=== PATIENT | male | born 1965 | race Two or more races ===

== ENCOUNTER 2021-04-23 23:20 | Inpatient (IN) | payer MEDICAID ==
[~2021-04-23] VITALS: Ht 167.6 cm; Wt 88.9 kg
--- NOTE | 2021-04-23 23:56 | NUR ---
PT BIB SON FOR C/O ELAVATED BS OF 500+ AT HOME. FSBS ON TRIAGE: 389. ALSO W/ C/O CRACKED TONGUE, AND PENILE DISCHARGE. PT ALERT AND ORIENTED X3 AMBULATORY WITH NON LABORED BREATHING.
--- NOTE | 2021-04-24 | NUR ---
PATIENT PLACED ON CARDIAC PADS AND MONITOR WITH CLOSE OBSERVATION.
--- NOTE | 2021-04-24 00:25 | NUR ---
FABIANO LUCERO [phone]
[2021-04-24] MEDS ORDERED: IV NS 0.9% 1,000 ML BAG IV ONE (00:30)
[2021-04-24] MEDS ORDERED: ATROPINE SULFATE INJ 1 MG/ML VIAL ONE (00:40)
[2021-04-24] MEDS ORDERED: ATROPINE SULFATE 1 MG/10 ML DISP.SYRIN IV ONE (01:00)
[2021-04-24 01:02] LABS: BASOPHILS # (AUTO) 0.1 K/uL (0.0-0.2); BASOPHILS % (AUTO) 1.1 % (0.0-2.0); EOSINOPHILS % (AUTO) 6.3 % (0.0-6.0); HEMATOCRIT 37 % (39-51); HEMOGLOBIN 11.9 g/dL (13.5-17.5); LYMPHOCYTES % (AUTO) 32.9 % (20.0-44.0); MEAN CORPUSCULAR HGB CONC 32 g/dl (31.0-36.0); MEAN CORPUSCULAR VOLUME 66 fL (80-96); MONOCYTES # (AUTO) 0.4 K/uL (0.1-1.30); MONOCYTES % (AUTO) 7.2 % (2.0-12.0); NEUTROPHILS # (AUTO) 3.2 K/uL (1.8-8.9); NEUTROPHILS % (AUTO) 52.5 % (43.0-81.0); PLATELET COUNT (AUTO) 206 K/uL (150-450); RED BLOOD CELL COUNT(AUTO) 5.61 MIL/uL (4.5-6.0); WHITE BLOOD COUNT (AUTO) 6.1 K/uL (4.3-11.0)
[2021-04-24 01:03] LABS: ALANINE AMINOTRANSFERASE 36 U/L (12-78); ALBUMIN 3.5 g/dL (3.4-5.0); ALKALINE PHOSPHATASE 140 U/L (46-116); ASPARTATE AMINOTRANSFERASE 17 U/L (15-37); BILIRUBIN,DIRECT 0.1 mg/dL (0.0-0.2); BILIRUBIN,TOTAL 0.4 mg/dL (0.2-1.0); CARBON DIOXIDE 26 mmol/L (21-32); CHLORIDE 99 mmol/L (98-107); CREATININE 1.1 mg/dL (0.6-1.3); SODIUM SERUM 134 mmol/L (136-145); TOTAL PROTEIN, SERUM 7.5 g/dL (6.4-8.2); UREA NITROGEN, BLOOD 21 mg/dL (7-18)
[2021-04-24 01:11] LABS: CALCIUM, SERUM 8.6 mg/dL (8.5-10.1)
[2021-04-24 01:15] LABS: GLUCOSE 452 mg/dL (74-106)
[2021-04-24] MEDS ORDERED: INSULIN REGULAR, HUMAN 100 UNIT/ML 10 ML VIAL ONE (01:22)
[2021-04-24] MEDS ORDERED: INSULIN REGULAR, HUMAN 100 UNIT/ML 10 ML VIAL IV ONE (01:30)
--- NOTE | 2021-04-24 01:40 | NUR ---
URINE COLLECTED AND SENT TO LAB.
[2021-04-24 01:50] LABS: BASOPHILS % (MANUAL) 0 % (0.0-2.0); EOSINOPHILS % (MANUAL) 5 % (0-4); NEUTROPHILS % (MANUAL) 61 (42-76)
[2021-04-24 01:51] LABS: LYMPHOCYTES % (MANUAL) 23 % (16-48); MONOCYTES % (MANUAL) 11 % (0-11.0)
[2021-04-24 01:58] LABS: BILIRUBIN,URINE Negative (NEGATIVE); COLOR,URINE YELLOW (YELLOW); LEUKOCYTE ESTERASE ,URINE Negative (NEGATIVE); NITRITE, URINE Negative (NEGATIVE); PH,URINE 5.5 (5.0-8.0); PROTEIN,URINE Negative (NEGATIVE); UGLUCOSE 500 MG/DL mg/dL (NEGATIVE); UROBILINOGEN,URINE 0.2 EU/dL (0.2)
--- NOTE | 2021-04-24 02:30 | NUR ---
CALLED ELEMENTARY SCHOOL DIRECTOR FOR MYCOSTATIN CREAM AVAILABILITY.
--- NOTE | 2021-04-24 02:58 | NUR ---
GLUCOSE [id number]
[2021-04-24] MEDS ORDERED: MAG HYDROX/AL HYDROX/SIMETH 30 ML UDC PO PRN (03:00)
[2021-04-24] MEDS ORDERED: Z GUARD REMEDY 2 OZ OINT TP PRN (03:00)
[2021-04-24] MEDS ORDERED: ACETAMINOPHEN 325 MG TABLET PO PRN (03:00)
[2021-04-24] MEDS ORDERED: ONDANSETRON HCL/PF 4 MG/2 ML VIAL IVP PRN (03:00)
[2021-04-24] MEDS ORDERED: ZOLPIDEM TARTRATE 5 MG TABLET PO PRN (03:00)
[2021-04-24] MEDS ORDERED: MAGNESIUM HYDROXIDE 30 ML UDC PO PRN (03:00)
[2021-04-24] MEDS ORDERED: INSULIN REGULAR, HUMAN 100 UNIT/ML 3 ML VIAL SQ PRN (03:00)
[2021-04-24] MEDS ORDERED: DEXTROSE 50%-WATER 50 ML DISP.SYRIN IV PRN (03:00)
[2021-04-24] MEDS ORDERED: IV NS 0.9% 1,000 ML IV ONE (03:00)
[2021-04-24] MEDS: NYSTATIN CREAM 15 GM TUBE TP SCH ×3 (03:52→16:03)
--- NOTE | 2021-04-24 03:53 | NUR ---
MEDICATION NOT AVAILABLE, AUTOMATIC DRILLING MACHINE OPERATOR AWARE.
[2021-04-24] MEDS ORDERED: METFORMIN (09:10)
--- NOTE | 2021-04-24 09:19 | NUR ---
GOT BED 311-2
--- NOTE | 2021-04-24 09:44 | NUR ---
report given to Yolande ACKERMAN for dayday.
--- NOTE | 2021-04-24 10:04 | NUR ---
wheeled patient viag urney accompanied by RN and emt in no distress. RN assigned to patient at bedside to assume care.
--- NOTE | 2021-04-24 10:05 | NUR ---
Patient came from ER via gurney, stable condition, no apparent distress noted, denies any pain or discomfort at this time. Admitting diagnosis: bradycardia and hyperglycemia. Skin assessment done. Patient was taught how to use call light, bed control and tv control, verbalized understanding and gratitude. Safety precautions in place, brakes locked, side rails up X2, all needs attended, will monitor closely for any changes.
--- NOTE | 2021-04-24 10:56 | NUR ---
TURBO ELECTRIC OPERATOR NOTES PT SEEN AND EXAMINED BY DR. JEAN, PLAN OF CARE DISCUSSED WITH PT, VERBALIZED UNDERSTANDING.
[2021-04-24] MEDS ORDERED: HYDROCODONE/APAP 5/325MG TABLET PO PRN (11:00)
[2021-04-24 11:49] LABS: IRON, SERUM 74 ug/dl (50-175); TOTAL IRON BINDING CAPACITY 296 ug/dl (250-450)
[2021-04-24 12:03] LABS: FERRITIN 73 ng/mL (8-388)
[2021-04-24] MEDS: MUPIROCIN OINT 2% 22 GM TUBE TP SCH ×2 (13:03→22:28)
[2021-04-24] MEDS: BLOOD SUGAR DIAGNOSTIC 1 EACH STRIP VI SCH ×3 (15:47→22:03)
[2021-04-24] MEDS: *INSULIN REGULAR(HUMULIN R)HUM 100 UNIT/ML VIAL SQ PRN ×2 (17:03→22:00)
--- NOTE | 2021-04-24 18:34 | NUR ---
RN CLOSING NOTES Patient seen in bed, no SOB, no respiratory distress, denies any pain or discomfort at this time. Insulin given per sliding scale, tolerating well, no s/s of hypo/hyperglycemia, no tremors noted, no dizziness. Skin warm to touch, no pallor or cyanosis noted. All due medications given, tolerating well. All needs attended, safety precautions maintained, brakes locked, side rails up X 2, call light left within reach, will endorse to next shift for continuity of care.
--- NOTE | 2021-04-24 19:44 | NUR ---
MS TELE OPENING NOTES: RECEIVED PATIENT AWAKE IN BED , AMBULATORY, UZBEK SPEAKING A/O X4 ON STABLE CONDITION, ON ROOM AIR, ON TELE MONITORING WITH READING OFJUNCTIONAL RHYTHM 45=50 IV LINE AT RAC#18 SL, NO COMPLAIN OF PAIN AND DISCOMFORT AT THIS TIME PATIENT KEPT CLEAN AND DRY, WILL CONTINUE TO MONITOR.
[2021-04-24 20:00] VITALS: BP 102/69
--- NOTE | 2021-04-24 22:00 | NUR ---
RN NOTES: PATIENT TELEMONITORING READING WAS SR/SB WITH 1 DEGREE AVB- A FIB AT 59 PATIENT WAS ASYMPTOMATIC, NO COMPLAIN OF PAIN AND DISCOMFORT, NOTIFY DR LOPEZ AND ORDERED TO MONITOR.
[2021-04-25] VITALS: BP 135/85
[2021-04-25 04:00] VITALS: BP 141/69
[2021-04-25 06:39] LABS: BASOPHILS # (AUTO) 0.1 K/uL (0.0-0.2); BASOPHILS % (AUTO) 1.4 % (0.0-2.0); EOSINOPHILS % (AUTO) 6.4 % (0.0-6.0); HEMATOCRIT 38 % (39-51); HEMOGLOBIN 13.2 g/dL (13.5-17.5); LYMPHOCYTES # (AUTO) 2.4 K/uL (0.8-4.8); LYMPHOCYTES % (AUTO) 33.4 % (20.0-44.0); MEAN CORPUSCULAR HGB CONC 35 g/dl (31.0-36.0); MEAN CORPUSCULAR VOLUME 65 fL (80-96); MONOCYTES # (AUTO) 0.4 K/uL (0.1-1.30); NEUTROPHILS # (AUTO) 3.8 K/uL (1.8-8.9); NEUTROPHILS % (AUTO) 52.8 % (43.0-81.0); PLATELET COUNT (AUTO) 266 K/uL (150-450); RED BLOOD CELL COUNT(AUTO) 5.85 MIL/uL (4.5-6.0); WHITE BLOOD COUNT (AUTO) 7.1 K/uL (4.3-11.0)
--- NOTE | 2021-04-25 06:59 | NUR ---
TELE CLOSING NOTES PATIENT SLEEP IN BED COMFORTABLY, BED IN LOW POSITION, CALL LIGHTS WITHIN REACH, NO COMPLAIN OF PAIN AND DISCOMFORT AT THIS TIME, A/OX4 AMBULATORY, KYRGYZ SPEAKING WITH IV LINE AT RAC# 18 SL.PATIENT KEPT CLEAN AND DRY, ALL NEEDS MET, ENDORSE TO INCOMING SHIFT.
[2021-04-25 07:01] LABS: CALCIUM, SERUM 8.3 mg/dL (8.5-10.1); CREATININE 1.3 mg/dL (0.6-1.3); MAGNESIUM 2.1 mg/dL (1.8-2.4); PHOSPHORUS 3.4 mg/dL (2.5-4.9); POTASSIUM 4.4 mmol/L (3.5-5.1)
[2021-04-25] MEDS: BLOOD SUGAR DIAGNOSTIC 1 EACH STRIP VI SCH ×2 (07:16→11:55)
[2021-04-25 08:00] VITALS: BP 123/73
--- NOTE | 2021-04-25 08:01 | NUR ---
TELE/RN OPENING NOTES RECEIVED PATIENT ON BED AWAKE AND NON VERBAL. PATIENT IS ON ROOM AIR SATURATION 99% PATIENT IN NO APPARENT RESPIRATORY DISTRESS NOTED. NO COMPLAINED OF PAIN NOTED AT THIS TIME. TELE MONITOR READING SINUS JEANNE 50 BPM JUNCTIONAL, 1ST DEGREE HEART CLOCK. WILL CONTINUE TO MONITOR.
[2021-04-25] MEDS: NYSTATIN CREAM 15 GM TUBE TP SCH (08:49)
[2021-04-25] MEDS ORDERED: GEMFIBROZIL 600 MG TABLET PO SCH (11:00)
[2021-04-25] MEDS: MUPIROCIN OINT 2% 22 GM TUBE TP SCH (11:11)
[2021-04-25] MEDS: *INSULIN REGULAR(HUMULIN R)HUM 100 UNIT/ML VIAL SQ PRN (11:54)
[2021-04-25] MEDS ORDERED: INSU1INS SQ (15:58)
[2021-04-25] MEDS ORDERED: INSU100I30 SQ (15:58)
[2021-04-25] MEDS ORDERED: METF-442 PO (15:58)
[2021-04-25] MEDS ORDERED: LANC1COM7 (15:58)
[2021-04-25] MEDS ORDERED: BLOO-1451 MC (15:58)
[2021-04-25] MEDS ORDERED: GEMF600T PO (15:58)
[2021-04-25] MEDS ORDERED: LANC-576 MC (15:58)
[2021-04-25 16:15] VITALS: BP 101/68
--- NOTE | 2021-04-25 18:13 | NUR ---
RN NOTES PATIENT IS ALERT AND ORIENTED X4. PATIENT IS ON ROOM AIR. PATIENT IN NO APPARENT RESPIRATORY DISTRESS NOTED. NO COMPLAINED OF PAIN NOTED AT THIS TIME. SEEN AND EXAMINED BY MD WITH ORDERS MADE AND CARRIED OUT. ALL DUE MEDICATIONS ORDERS. DISCHARGED INSTRUCTIONS WAS GIVEN TO FABIANO LUCERO AND VERBALIZED UNDERSTANDING. PATIENT LEFT THE HOSPITAL IN MEDICALLY STABLE CONDITION, PARK RECREATION MANAGER BY FABIANO LUCERO VIA PRIVATE CAR.
[2021-04-25] MEDS ORDERED: INSULIN GLARGINE, 100 UNIT/ML CARTRIDGE SQ SCH (22:00)
== END 2021-04-25 17:15 | disposition home or self-care (01) | DRG 420 ==
LOC: ER 23:25 → TRANSITION 04-24 08:18 → TELE 04-24 09:37
PROVIDERS: ADMIT Nurse Practitioner Acute Care; ATTEND Nurse Practitioner Acute Care
DX: E11.65 Type 2 diabetes mellitus with hyperglycemia (principal); D50.9 Iron deficiency anemia, unspecified; E66.9 Obesity, unspecified; E78.1 Pure hyperglyceridemia; K21.9 Gastro-esophageal reflux disease without esophagitis; N48.1 Balanitis; Z68.31 Body mass index [BMI] 31.0-31.9, adult; Z79.84 Long term (current) use of oral hypoglycemic drugs
CPT/HCPCS: 36415; 71045-TC; 80048-TC; 80061-TC; 80076-TC; 82010-TC; 82728-TC; 82947-TC; 82962-TC; 83540-TC; 83735-TC; 84100-TC; 84484-TC; 85025-TC; 85730-TC; 87081-TC; 87491; 87591; A6403; C9803; G0378; J0461; J1815; J2405; J7030